=== PATIENT | male | born 1990 | race Caucasian/White ===

== ENCOUNTER 2020-03-19 19:20 | Emergency (ER) | payer MEDICAID, SELFPAY ==
[~2020-03-19] VITALS: Ht 182.9 cm; Wt 77.1 kg
[2020-03-19 19:22] VITALS: BP 139/81; Ht 182.9 cm; Wt 77.1 kg
== END 2020-03-19 20:31 | disposition home or self-care (01) ==
LOC: ED 19:20
DX: B34.9 Viral infection, unspecified (principal); Z20.828 Contact with and (suspected) exposure to other viral communicable diseases; Z88.0 Allergy status to penicillin
CPT/HCPCS: U0003

== ENCOUNTER 2020-04-06 17:07 | Emergency (ER) | payer MEDICAID ==
[~2020-04-06] VITALS: Ht 182.9 cm; Wt 78.0 kg
[2020-04-06 17:11] VITALS: BP 127/74
== END 2020-04-06 18:38 | disposition home or self-care (01) ==
LOC: ED 17:07
DX: S39.012A Strain of muscle, fascia and tendon of lower back, initial encounter (principal); Z88.0 Allergy status to penicillin; Z86.19 Personal history of other infectious and parasitic diseases; X58.XXXA Exposure to other specified factors, initial encounter; Y93.89 Activity, other specified; Y92.89 Other specified places as the place of occurrence of the external cause; Y99.8 Other external cause status

== ENCOUNTER 2020-04-10 15:03 | Emergency (ER) | payer MEDICAID ==
[~2020-04-10] VITALS: Ht 182.9 cm; Wt 78.0 kg
[2020-04-10 15:09] VITALS: Ht 182.9 cm; Wt 78.0 kg
[2020-04-10 15:39] VITALS: BP 119/96
== END 2020-04-10 15:39 | disposition home or self-care (01) ==
LOC: ED 15:03
DX: M54.5 Low back pain (principal)